=== PATIENT | male | born 1960 | race Caucasian/White ===

== ENCOUNTER 2023-02-07 18:27 | Emergency (ER) | payer OTHER ==
[2023-02-07 18:44] VITALS: BP 110/71; PULSE 95; RESP 18; TEMP 98; BMI 25.8
[2023-02-08] MEDS ORDERED: oxyCODONE HCL 5 MG TABLET PO ONE (00:44)
[2023-02-08] MEDS ORDERED: oxyCODONE HCL 5 MG TABLET ONE (00:48)
== END 2023-02-08 01:12 | disposition home or self-care (01) ==
LOC: JER 18:27
DX: K94.03 Colostomy malfunction (principal)
CPT/HCPCS: 99283-25

== ENCOUNTER 2023-03-07 05:32 | Inpatient (IN) | payer OTHER ==
[2023-03-07 08:36] LABS: VENOUS BASE EXCESS 5.7 mmol/L (-2-2); VENOUS O2 SATURATION 92.2 % (70-80); VENOUS PCO2 54.9 mmHg (38-52); VENOUS PH 7.383 (7.310-7.410)
[2023-03-07 08:37] LABS: BASO % 1.9 % (0-2.0); EOS % 2.6 % (0-4.5); HEMATOCRIT 34.5 % (35.4-49); HEMOGLOBIN 10.2 GM/dL (11.7-16.9); LYMPH % 18.5 % (8-40); MCH 20.8 pg (25.7-33.7); MCHC 29.4 g/dl (32.0-35.9); MEAN CELL VOLUME 70.8 fl (80-96); MEAN PLT VOLUME 7.6 fl (7.5-11.1); MONO % 10.6 % (3.8-10.2); NEUT % 66.4 % (42.8-82.8); PLATELET COUNT 304 10^3/uL (134-434); RBC 4.88 M/mm3 (4.00-5.60); RDW 19.2 % (11.9-15.9); WHITE BLOOD COUNT 7.5 K/mm3 (4.0-10.0)
[2023-03-07 08:47] LABS: INR 1.02 (0.83-1.09); PROTHROMBIN TIME (PATIENT) 11.8 SEC (9.7-13.0)
[2023-03-07 08:50] LABS: ACTIVATED PTT 30.9 SECONDS (25.2-36.5)
[2023-03-07 08:59] LABS: POTASSIUM 4.1 mmol/L (3.5-5.1)
[2023-03-07 09:01] LABS: ALBUMIN 3.1 g/dl (3.4-5.0); BLOOD UREA NITROGEN 26.8 mg/dL (7-18); CALCIUM 9.4 mg/dL (8.5-10.1)
[2023-03-07 09:05] LABS: CREATININE 0.6 mg/dL (0.55-1.3)
[2023-03-07 09:06] LABS: BILIRUBIN,TOTAL 0.2 mg/dL (0.2-1); TOT PROT 7.1 g/dl (6.4-8.2)
[2023-03-07] MEDS ORDERED: VANCOMYCIN 1,000 MG in DEXTROSE 5%-WATER - 250 ML IVPB ONE (09:26)
[2023-03-07] MEDS ORDERED: PIPERACILLIN/TAZOB 3.375 GM 3.375 GM in DEXTROSE 5%-WATER - 50 ML IVPB ONE (09:26)
[2023-03-07 09:36] LABS: ANISOCYTOSIS 2+; MACROCYTOSIS 0
[2023-03-07] MEDS ORDERED: PIPERACILLIN/TAZOB 3.375 GM 3.375 GM/50 ML BAG IVPB ONE (09:37)
[2023-03-07] MEDS ORDERED: VANCOMYCIN 1 GRAM (PRE-DOCKED) 1,000 MG/250 ML BAG IVPB ONE (09:37)
[2023-03-07] MEDS: NYSTATIN 100,000 UNIT/GM TOPICAL CREAM 15 GM TUBE TP SCH ×2 (10:50→23:36)
[2023-03-07] MEDS ORDERED: SODIUM CHLORIDE 1,000 ML IV SCH (18:30)
[2023-03-07 21:10] VITALS: BMI 24.7
[2023-03-07] MEDS: ATORVASTATIN CA 20 MG TABLET (FP) PO SCH (22:17)
[2023-03-07] MEDS: QUEtiapine FUMARATE 300 MG TABLET PO SCH (22:18)
[2023-03-07] MEDS ORDERED: ACETAMINOPHEN 1000 MG/100 ML BAG IVPB PRN (23:02)
[2023-03-07] MEDS ORDERED: oxyCODONE HCL 5 MG TABLET PO ONE (23:02)
[2023-03-08] MEDS ORDERED: PIPERACILLIN/TAZOB 3.375 GM 3.375 GM in DEXTROSE 5%-WATER - 50 ML IVPB SCH (10:00)
[2023-03-08] MEDS ORDERED: ESCITALOPRAM OXALATE 20 MG TABLET PO SCH ×2 (10:00)
[2023-03-08] MEDS ORDERED: FLUoxetine HCL 10 MG TABLET PO SCH (10:00)
[2023-03-08] MEDS: QUEtiapine FUMARATE 300 MG TABLET PO SCH (10:35)
[2023-03-08] MEDS: TAMSULOSIN HCL 0.4 MG CAP PO SCH (10:35)
[2023-03-08] MEDS: DOCUSATE SODIUM 100 MG CAPSULE (FP) PO SCH (10:35)
[2023-03-08] MEDS: metoPROLOL SUCCINATE 25 MG TAB.SR.24H (FP) PO SCH (10:36)
[2023-03-08] MEDS: VANCOMYCIN/WATER FOR INJ (PEG) 1,000 MG/200 ML BAG IVPB SCH ×2 (10:53→21:35)
[2023-03-08] MEDS: NYSTATIN 100,000 UNIT/GM TOPICAL CREAM 15 GM TUBE TP SCH ×2 (12:22→21:35)
[2023-03-08] MEDS: CEFTRIAXONE 1 GM in DEXTROSE 5%-WATER - 50 ML IVPB SCH (18:12)
[2023-03-08] MEDS: ATORVASTATIN CA 20 MG TABLET (FP) PO SCH (21:35)
[2023-03-09] MEDS ORDERED: QUEtiapine FUMARATE 100 MG TABLET (FP) ONE (10:11)
[2023-03-09] MEDS: TAMSULOSIN HCL 0.4 MG CAP PO SCH (10:30)
[2023-03-09] MEDS: NYSTATIN 100,000 UNIT/GM TOPICAL CREAM 15 GM TUBE TP SCH ×2 (10:31→22:24)
[2023-03-09] MEDS: QUEtiapine FUMARATE 300 MG TABLET PO SCH (10:31)
[2023-03-09] MEDS: DOCUSATE SODIUM 100 MG CAPSULE (FP) PO SCH (10:31)
[2023-03-09] MEDS: metoPROLOL SUCCINATE 25 MG TAB.SR.24H (FP) PO SCH (10:32)
[2023-03-09] MEDS: VANCOMYCIN/WATER FOR INJ (PEG) 1,000 MG/200 ML BAG IVPB SCH ×2 (10:32→22:23)
[2023-03-09 12:37] LABS: URINE APPEARANCE CLEAR; URINE BILIRUBIN NEGATIVE (NEGATIVE); URINE COLOR YELLOW; URINE GLUCOSE (UA) NEGATIVE (NEGATIVE); URINE KETONE NEGATIVE (NEGATIVE); URINE LEUK ESTERASE 2+ (NEGATIVE); URINE NITRITE NEGATIVE (NEGATIVE); URINE PROTEIN NEGATIVE (NEGATIVE); URINE UROBILINOGEN 0.2 mg/dL (0.2-1.0)
[2023-03-09 12:39] LABS: URINE BACTERIA 1+ /uL (0-1359); URINE RBC 0-3 /uL (0-23.9); URINE WBC 50-100 /uL (0-25.8)
[2023-03-09] MEDS: CEFTRIAXONE 1 GM in DEXTROSE 5%-WATER - 50 ML IVPB SCH (13:18)
[2023-03-09] MEDS: ATORVASTATIN CA 20 MG TABLET (FP) PO SCH (22:22)
[2023-03-09 23:17] VITALS: RESP 18
[2023-03-10] MEDS ORDERED: ACETAMINOPHEN 1000 MG/100 ML BAG IVPB ONE (01:01)
[2023-03-10] MEDS ORDERED: QUEtiapine FUMARATE 100 MG TABLET (FP) ONE (09:14)
[2023-03-10] MEDS: TAMSULOSIN HCL 0.4 MG CAP PO SCH (09:16)
[2023-03-10] MEDS: QUEtiapine FUMARATE 300 MG TABLET PO SCH (09:16)
[2023-03-10] MEDS: DOCUSATE SODIUM 100 MG CAPSULE (FP) PO SCH (09:16)
[2023-03-10] MEDS: metoPROLOL SUCCINATE 25 MG TAB.SR.24H (FP) PO SCH (09:16)
[2023-03-10] MEDS: CEFTRIAXONE 1 GM in DEXTROSE 5%-WATER - 50 ML IVPB SCH (09:16)
[2023-03-10] MEDS: NYSTATIN 100,000 UNIT/GM TOPICAL CREAM 15 GM TUBE TP SCH ×2 (09:17→21:58)
[2023-03-10 10:21] LABS: BASO % 1.7 % (0-2.0); EOS % 5.9 % (0-4.5); HEMATOCRIT 33.3 % (35.4-49); HEMOGLOBIN 9.7 GM/dL (11.7-16.9); LYMPH % 22.9 % (8-40); MCH 20.9 pg (25.7-33.7); MCHC 29.1 g/dl (32.0-35.9); MEAN CELL VOLUME 71.7 fl (80-96); MEAN PLT VOLUME 7.5 fl (7.5-11.1); MONO % 11.7 % (3.8-10.2); NEUT % 57.8 % (42.8-82.8); PLATELET COUNT 303 10^3/uL (134-434); RBC 4.65 M/mm3 (4.00-5.60); RDW 19.2 % (11.9-15.9); WHITE BLOOD COUNT 6.3 K/mm3 (4.0-10.0)
[2023-03-10] MEDS: VANCOMYCIN/WATER FOR INJ (PEG) 1,000 MG/200 ML BAG IVPB SCH ×2 (10:21→21:58)
[2023-03-10 10:34] LABS: POTASSIUM 4.3 mmol/L (3.5-5.1)
[2023-03-10 10:49] LABS: BLOOD UREA NITROGEN 16.2 mg/dL (7-18)
[2023-03-10 10:54] LABS: CALCIUM 8.7 mg/dL (8.5-10.1)
[2023-03-10 10:57] LABS: CREATININE 0.6 mg/dL (0.55-1.3)
[2023-03-10 12:19] LABS: ANISOCYTOSIS 1+; MACROCYTOSIS 1+; ROULEAU 1+
[2023-03-10] MEDS: ATORVASTATIN CA 20 MG TABLET (FP) PO SCH (21:58)
[2023-03-11] MEDS ORDERED: ACETAMINOPHEN 500 MG TABLET (FP) PO ONE (05:58)
[2023-03-11] MEDS ORDERED: QUEtiapine FUMARATE 100 MG TABLET (FP) ONE (09:15)
[2023-03-11] MEDS: DOCUSATE SODIUM 100 MG CAPSULE (FP) PO SCH (09:28)
[2023-03-11] MEDS: metoPROLOL SUCCINATE 25 MG TAB.SR.24H (FP) PO SCH (09:28)
[2023-03-11] MEDS: TAMSULOSIN HCL 0.4 MG CAP PO SCH (09:28)
[2023-03-11] MEDS: CEFTRIAXONE 1 GM in DEXTROSE 5%-WATER - 50 ML IVPB SCH (09:30)
[2023-03-11 09:47] VITALS: BP 114/63; PULSE 75; TEMP 98
[2023-03-11] MEDS: NYSTATIN 100,000 UNIT/GM TOPICAL CREAM 15 GM TUBE TP SCH (10:16)
[2023-03-11] MEDS: QUEtiapine FUMARATE 300 MG TABLET PO SCH (10:16)
== END 2023-03-11 14:38 | DRG 603 ==
LOC: JER 05:32 → JERBED 09:41 → J7W 18:28 → J6S 03-08 12:43 → OBSVTOIN 03-09 15:01
PROVIDERS: ADMIT Internal Medicine; ATTEND Internal Medicine
DX: L03.311 Cellulitis of abdominal wall (principal); L03.115 Cellulitis of right lower limb; L03.116 Cellulitis of left lower limb; G82.20 Paraplegia, unspecified; K94.09 Other complications of colostomy; I10 Essential (primary) hypertension; F32.A Depression, unspecified; E78.5 Hyperlipidemia, unspecified; R45.1 Restlessness and agitation; J44.9 Chronic obstructive pulmonary disease, unspecified; L30.4 Erythema intertrigo; F20.9 Schizophrenia, unspecified; Y83.8 Other surgical procedures as the cause of abnormal reaction of the patient, or of later complication, without mention of misadventure at the time of the procedure; Y82.9 Unspecified medical devices associated with adverse incidents
CPT/HCPCS: 0241U-QW; 36415; 71045-TC-FY; 74177-TC; 80048; 80053; 81003; 82803; 82977; 83605; 85025; 85610; 85730; 86850; 86900; 86901; 87040; 87086; 93005; 93010; 99285-25; G0378; G0480; Q9967

== ENCOUNTER 2023-05-03 08:17 | Emergency (ER) | payer OTHER ==
[2023-05-03] MEDS ORDERED: ACETAMINOPHEN 325 MG TABLET (FP) ONE (09:19)
[2023-05-03] MEDS: ACETAMINOPHEN 325 MG TABLET (FP) PO ONE (09:30)
[2023-05-03 10:54] VITALS: BMI 22.6
[2023-05-03 11:20] VITALS: BP 121/88; PULSE 66; RESP 17; TEMP 97.7
== END 2023-05-03 10:50 ==
LOC: JER 08:17
DX: R10.9 Unspecified abdominal pain (principal); M79.89 Other specified soft tissue disorders; K94.09 Other complications of colostomy; K94.19 Other complications of enterostomy
CPT/HCPCS: 99283-25

== ENCOUNTER 2023-05-23 05:21 | Emergency (ER) | payer OTHER ==
[2023-05-23 05:47] VITALS: BMI 26.6
[2023-05-23] MEDS: NYSTATIN 100,000 UNIT/GM TOPICAL CREAM 15 GM TUBE TP ONE (06:41)
[2023-05-23] MEDS: NYSTATIN POWDER 100,000 UNITS/GM - 15 GM TOPICAL POWDER TP ONE (06:54)
[2023-05-23] MEDS ORDERED: ACETAMINOPHEN INJECTION 100 ML IVPB ONE (06:55)
[2023-05-23 06:58] LABS: BASO % 1.4 % (0-2.0); EOS % 4.4 % (0-4.5); HEMATOCRIT 38.8 % (35.4-49); HEMOGLOBIN 11.1 GM/dL (11.7-16.9); LYMPH % 24.1 % (8-40); MCH 20.7 pg (25.7-33.7); MCHC 28.7 g/dl (32.0-35.9); MEAN CELL VOLUME 72.1 fl (80-96); MEAN PLT VOLUME 7.3 fl (7.5-11.1); MONO % 14.1 % (3.8-10.2); PLATELET COUNT 267 10^3/uL (134-434); RBC 5.38 M/mm3 (4.00-5.60); RDW 18.7 % (11.9-15.9); WHITE BLOOD COUNT 5.9 K/mm3 (4.0-10.0)
[2023-05-23] MEDS: ACETAMINOPHEN 1000 MG/100 ML BAG IVPB ONE (07:00)
[2023-05-23 07:21] LABS: INR 1.03 (0.83-1.09)
[2023-05-23 07:24] LABS: ACTIVATED PTT 32.8 SECONDS (25.2-36.5); POTASSIUM 4.2 mmol/L (3.5-5.1)
[2023-05-23 07:26] LABS: CALCIUM 9.1 mg/dL (8.5-10.1)
[2023-05-23 07:27] LABS: BLOOD UREA NITROGEN 24.6 mg/dL (7-18); MAGNESIUM 2.4 mg/dL (1.8-2.4)
[2023-05-23 07:33] LABS: BILIRUBIN,TOTAL 0.2 mg/dL (0.2-1); CREATININE 0.5 mg/dL (0.55-1.3); TOT PROT 7.1 g/dl (6.4-8.2)
[2023-05-23 09:21] LABS: ANISOCYTOSIS 0; MACROCYTOSIS 0
[2023-05-23 11:53] VITALS: BP 119/73; PULSE 70; RESP 22; TEMP 98.1
== END 2023-05-23 11:57 ==
LOC: JER 05:21
PROC: 3E033NZ Introduction of Analgesics, Hypnotics, Sedatives into Peripheral Vein, Percutaneous Approach (ICD-10-PCS; principal; 2023-05-23)
DX: B49 Unspecified mycosis (principal); Z93.3 Colostomy status
CPT/HCPCS: 0241U-QW; 36415; 71045-TC-FY; 80053; 83735; 84100; 85025; 85610; 85651; 85730; 86140; 99284-25; J0131

== ENCOUNTER 2023-07-24 08:25 | Observation (INO) | payer OTHER ==
[2023-07-24 08:47] VITALS: BMI 24.3
[2023-07-24 09:32] LABS: BASO % 1.7 % (0-2.0); EOS % 3.8 % (0-4.5); HEMOGLOBIN 11.5 GM/dL (11.7-16.9); INR 1.02 (0.83-1.09); MCH 22.2 pg (25.7-33.7); MCHC 30.2 g/dl (32.0-35.9); MEAN CELL VOLUME 73.4 fl (80-96); MEAN PLT VOLUME 7.3 fl (7.5-11.1); MONO % 12.1 % (3.8-10.2); NEUT % 63.4 % (42.8-82.8); PLATELET COUNT 217 10^3/uL (134-434); PROTHROMBIN TIME (PATIENT) 11.5 SEC (9.7-13.0); RBC 5.18 M/mm3 (4.00-5.60); RDW 20.1 % (11.9-15.9); WHITE BLOOD COUNT 7.6 K/mm3 (4.0-10.0)
[2023-07-24 09:35] LABS: ACTIVATED PTT 33.2 SECONDS (25.2-36.5)
[2023-07-24 09:43] LABS: POTASSIUM 4.4 mmol/L (3.5-5.1)
[2023-07-24] MEDS ORDERED: BACLOFEN 10 MG TABLET (FP) ONE (09:44)
[2023-07-24 09:48] LABS: BLOOD UREA NITROGEN 20.9 mg/dL (7-18)
[2023-07-24 09:50] LABS: ALBUMIN 2.9 g/dl (3.4-5.0); CALCIUM 8.6 mg/dL (8.5-10.1); CREATININE 0.7 mg/dL (0.55-1.3); MAGNESIUM 2.2 mg/dL (1.8-2.4)
[2023-07-24 09:51] LABS: BILIRUBIN,TOTAL 0.3 mg/dL (0.2-1); TOT PROT 6.8 g/dl (6.4-8.2)
[2023-07-24] MEDS: BACLOFEN 10 MG TABLET (FP) PO ONE (09:56)
[2023-07-24] MEDS ORDERED: ACETAMINOPHEN INJECTION 100 ML IVPB ONE (12:20)
[2023-07-24] MEDS: SODIUM CHLORIDE 0.9% 500 ML INFUS.BAG IV ONE (12:27)
[2023-07-24] MEDS: ACETAMINOPHEN 1000 MG/100 ML BAG IVPB ONE (12:27)
[2023-07-24] MEDS ORDERED: QUEtiapine FUMARATE 100 MG TABLET (FP) ONE (16:23)
[2023-07-24] MEDS: oxyCODONE HCL 5 MG TABLET PO PRN (16:28)
[2023-07-24] MEDS: QUEtiapine FUMARATE 300 MG TABLET PO SCH (17:46)
[2023-07-24] MEDS: ATORVASTATIN CA 40 MG TABLET (FP) PO SCH (21:01)
[2023-07-24] MEDS: ACETAMINOPHEN 325 MG TABLET (FP) PO PRN (21:04)
[2023-07-25] MEDS: TAMSULOSIN HCL 0.4 MG CAP PO SCH (08:33)
[2023-07-25] MEDS: CEFTRIAXONE 1 GM in DEXTROSE 5%-WATER - 50 ML IVPB ONE (08:33)
[2023-07-25] MEDS ORDERED: QUEtiapine FUMARATE 100 MG TABLET (FP) ONE (09:26)
[2023-07-25] MEDS: NYSTATIN/TRIAMCINOLONE TOPICAL OINTMENT 15 GM TUBE TP SCH (09:45)
[2023-07-25] MEDS: metoPROLOL SUCCINATE 25 MG TAB.SR.24H (FP) PO SCH (09:45)
[2023-07-25 10:18] LABS: HEMATOCRIT 41.8 % (35.4-49); HEMOGLOBIN 12.9 GM/dL (11.7-16.9); MCH 22.5 pg (25.7-33.7); MCHC 30.9 g/dl (32.0-35.9); MEAN PLT VOLUME 7.7 fl (7.5-11.1); PLATELET COUNT 195 10^3/uL (134-434); RBC 5.73 M/mm3 (4.00-5.60); RDW 20.1 % (11.9-15.9); WHITE BLOOD COUNT 7.1 K/mm3 (4.0-10.0)
[2023-07-25 10:40] LABS: POTASSIUM 3.9 mmol/L (3.5-5.1)
[2023-07-25 10:45] LABS: BLOOD UREA NITROGEN 16.4 mg/dL (7-18)
[2023-07-25 10:46] LABS: ALBUMIN 2.9 g/dl (3.4-5.0); CALCIUM 8.5 mg/dL (8.5-10.1)
[2023-07-25 10:48] LABS: CREATININE 0.6 mg/dL (0.55-1.3)
[2023-07-25 10:50] LABS: BILIRUBIN,TOTAL 0.4 mg/dL (0.2-1); TOT PROT 6.7 g/dl (6.4-8.2)
[2023-07-26] MEDS ORDERED: QUEtiapine FUMARATE 100 MG TABLET (FP) ONE (09:13)
[2023-07-26] MEDS: CEFTRIAXONE 1 GM in DEXTROSE 5%-WATER - 50 ML IVPB SCH (09:33)
[2023-07-26 21:16] VITALS: RESP 18
[2023-07-27 06:06] VITALS: TEMP 98.1
[2023-07-27 09:59] VITALS: BP 131/90; PULSE 84
== END 2023-07-27 11:36 ==
LOC: JER 08:25 → JERBED 09:17 → J4W 14:21
PROVIDERS: ADMIT Family Medicine; ATTEND Family Medicine
PROC: 3E033NZ Introduction of Analgesics, Hypnotics, Sedatives into Peripheral Vein, Percutaneous Approach (ICD-10-PCS; principal; 2023-07-24)
PROC: 3E03329 Introduction of Other Anti-infective into Peripheral Vein, Percutaneous Approach (ICD-10-PCS; 2023-07-24)
PROC: 3E0337Z Introduction of Electrolytic and Water Balance Substance into Peripheral Vein, Percutaneous Approach (ICD-10-PCS; 2023-07-24)
DX: J98.11 Atelectasis (principal); J44.9 Chronic obstructive pulmonary disease, unspecified; I10 Essential (primary) hypertension; E78.5 Hyperlipidemia, unspecified; M54.9 Dorsalgia, unspecified; R00.1 Bradycardia, unspecified; R09.02 Hypoxemia; Z87.891 Personal history of nicotine dependence
CPT/HCPCS: 36415; 71045-TC-FY; 71275-TC; 80053; 82550; 82553; 83690; 83735; 83880; 84484; 85025; 85027; 85379; 85610; 85730; 86850; 86900; 86901; 93005; 93010; 96365; 96366; 96375; 99285-25; G0378; J0131; J0475

== ENCOUNTER 2023-11-01 11:16 | Inpatient (IN) | payer OTHER ==
[2023-11-01 12:07] VITALS: BMI 24.5
[2023-11-01] MEDS ORDERED: ALBUTEROL SO4 0.083% IH SOL 2.5 MG/3 ML VIAL.NEB. NEB ONE (12:22)
[2023-11-01] MEDS: ALBUTEROL SO4 0.5 % INH SOLN 2.5 MG/0.5 ML VIAL.NEB. NEB ONE (13:02)
[2023-11-01 13:17] LABS: POTASSIUM 4.5 mmol/L (3.5-5.1)
[2023-11-01 13:19] LABS: CALCIUM 8.9 mg/dL (8.5-10.1)
[2023-11-01 13:20] LABS: ALBUMIN 3.3 g/dl (3.4-5.0); BLOOD UREA NITROGEN 16.9 mg/dL (7-18)
[2023-11-01 13:23] LABS: CREATININE 0.7 mg/dL (0.55-1.3)
[2023-11-01 13:24] LABS: BILIRUBIN,TOTAL 0.3 mg/dL (0.2-1); TOT PROT 6.6 g/dl (6.4-8.2)
[2023-11-01 13:32] LABS: BASO % 1.1 % (0-2.0); EOS % 2.9 % (0-4.5); HEMATOCRIT 42.4 % (35.4-49); HEMOGLOBIN 12.9 GM/dL (11.7-16.9); LYMPH % 18.5 % (8-40); MCH 24.1 pg (25.7-33.7); MCHC 30.5 g/dl (32.0-35.9); MEAN PLT VOLUME 8.2 fl (7.5-11.1); MONO % 12.6 % (3.8-10.2); NEUT % 64.9 % (42.8-82.8); PLATELET COUNT 172 10^3/uL (134-434); RBC 5.37 M/mm3 (4.00-5.60); RDW 18.2 % (11.9-15.9); WHITE BLOOD COUNT 7.2 K/mm3 (4.0-10.0)
[2023-11-02] MEDS ORDERED: ALBUTEROL SO4 2.5/IPRATROPIUM 0.5 INH SOL 3 ML VIAL.NEB. NEB PRN (01:55)
[2023-11-02] MEDS: MELATONIN 5 MG TABLETS PO ONE (06:08)
[2023-11-02 08:56] VITALS: RESP 20
[2023-11-02] MEDS ORDERED: TAMSULOSIN HCL 0.4 MG CAP ONE (09:10)
[2023-11-02] MEDS ORDERED: ALBUTEROL SO4 2.5/IPRATROPIUM 0.5 INH SOL 3 ML VIAL.NEB. NEB ONE ×3 (09:10→20:05)
[2023-11-02] MEDS: ALBUTEROL SO4 2.5/IPRATROPIUM 0.5 INH SOL 3 ML VIAL.NEB. NEB SCH (09:15)
[2023-11-02] MEDS: TAMSULOSIN HCL 0.4 MG CAP PO SCH (09:15)
[2023-11-02] MEDS ORDERED: FLUTICASONE/UMECLIDIN/VILANTER(200-62.5-25 TRELEGY ELLIPTA) INAHLER IH SCH (10:00)
[2023-11-02] MEDS ORDERED: metoPROLOL SUCCINATE 25 MG TAB.SR.24H (FP) PO ONE (10:09)
[2023-11-02] MEDS ORDERED: ENOXAPARIN NA (PORCINE) 40 MG/0.4 ML DISP.SYRIN SQ ONE (10:09)
[2023-11-02] MEDS: metoPROLOL SUCCINATE 25 MG TAB.SR.24H (FP) PO SCH (10:40)
[2023-11-02] MEDS: ENOXAPARIN NA (PORCINE) 40 MG/0.4 ML DISP.SYRIN SQ SCH (10:40)
[2023-11-02] MEDS ORDERED: ACETAMINOPHEN 325 MG TABLET (FP) ONE (14:15)
[2023-11-02] MEDS: ACETAMINOPHEN 325 MG TABLET (FP) PO PRN (14:20)
[2023-11-02] MEDS ORDERED: SODIUM CHLORIDE NASAL SPRAY 44 ML BOTTLE NS PRN (16:17)
[2023-11-02 22:11] VITALS: BP 128/86; PULSE 65; TEMP 98.1
[2023-11-02] MEDS ORDERED: QUEtiapine FUMARATE 100 MG TABLET (FP) ONE (23:01)
[2023-11-02] MEDS ORDERED: ATORVASTATIN CA 20 MG TABLET (FP) ONE (23:01)
[2023-11-02] MEDS: QUEtiapine FUMARATE 100 MG TABLET (FP) PO SCH (23:05)
[2023-11-02] MEDS: ATORVASTATIN CA 20 MG TABLET (FP) PO SCH (23:05)
[2023-11-03] MEDS ORDERED: QUEtiapine FUMARATE 300 MG TABLET PO SCH (06:31)
== END 2023-11-03 01:42 | DRG 189 ==
LOC: JER 11:16 → JERBED 19:56
PROVIDERS: ADMIT Internal Medicine; ATTEND Nurse Practitioner
DX: J96.21 Acute and chronic respiratory failure with hypoxia (principal); J44.1 Chronic obstructive pulmonary disease with (acute) exacerbation; J98.11 Atelectasis; I69.359 Hemiplegia and hemiparesis following cerebral infarction affecting unspecified side; I25.10 Atherosclerotic heart disease of native coronary artery without angina pectoris; I10 Essential (primary) hypertension; E78.5 Hyperlipidemia, unspecified; J45.909 Unspecified asthma, uncomplicated; N40.0 Benign prostatic hyperplasia without lower urinary tract symptoms; E87.6 Hypokalemia; Z95.5 Presence of coronary angioplasty implant and graft
CPT/HCPCS: 0241U-QW; 36415; 71045-TC-FY; 71275-TC; 80053; 83880; 84484; 85025; 93005; 93010; 99285-25; Q9967

== ENCOUNTER 2023-11-13 10:07 | Emergency (ER) | payer OTHER ==
[2023-11-13 10:49] VITALS: BP 123/80; PULSE 73; RESP 16; TEMP 98.4; BMI 54.1
[2023-11-13] MEDS ORDERED: oxyCODONE HCL 5 MG TABLET ONE (11:07)
[2023-11-13] MEDS: oxyCODONE HCL 5 MG TABLET PO ONE (11:09)
== END 2023-11-13 13:21 ==
LOC: JER 10:07
DX: K94.03 Colostomy malfunction (principal)
CPT/HCPCS: 99283-25

== ENCOUNTER 2023-12-14 08:27 | Emergency (ER) | payer OTHER ==
[2023-12-14 09:24] VITALS: RESP 16; BMI 24.3
[2023-12-14] MEDS ORDERED: ACETAMINOPHEN INJECTION 100 ML ONE (09:24)
[2023-12-14] MEDS ORDERED: FENTANYL CITRATE/PF 50 MCG/ML VIAL ONE (09:25)
[2023-12-14] MEDS: ACETAMINOPHEN 1000 MG/100 ML BAG IVPB ONE (10:02)
[2023-12-14 10:06] LABS: BASO % 0.9 % (0-2.0); EOS % 1.2 % (0-4.5); HEMATOCRIT 43.8 % (35.4-49); HEMOGLOBIN 13.2 GM/dL (11.7-16.9); LYMPH % 13.1 % (8-40); MCH 23.9 pg (25.7-33.7); MCHC 30.2 g/dl (32.0-35.9); MEAN CELL VOLUME 79.1 fl (80-96); MEAN PLT VOLUME 7.5 fl (7.5-11.1); MONO % 6.8 % (3.8-10.2); PLATELET COUNT 164 10^3/uL (134-434); RBC 5.54 M/mm3 (4.00-5.60); RDW 17.6 % (11.9-15.9); WHITE BLOOD COUNT 6.6 K/mm3 (4.0-10.0)
[2023-12-14 10:12] LABS: INR 0.96 (0.83-1.09); PROTHROMBIN TIME (PATIENT) 10.9 SEC (9.7-13.0)
[2023-12-14 10:15] LABS: ACTIVATED PTT 32.7 SECONDS (25.2-36.5)
[2023-12-14 10:24] LABS: POTASSIUM 4.6 mmol/L (3.5-5.1)
[2023-12-14 10:27] LABS: CALCIUM 8.9 mg/dL (8.5-10.1)
[2023-12-14 10:28] LABS: ALBUMIN 3.3 g/dl (3.4-5.0)
[2023-12-14 10:31] LABS: CREATININE 0.6 mg/dL (0.55-1.3)
[2023-12-14 10:33] LABS: BILIRUBIN,TOTAL 0.4 mg/dL (0.2-1); TOT PROT 6.7 g/dl (6.4-8.2)
[2023-12-14 10:44] LABS: EPI CELLS 9 /uL (0-25.1); HYALINE CASTS 0 /uL (0-3.1); PH,URINE 5.5 (5.0-8.0); URINE APPEARANCE CLOUDY; URINE BACTERIA 219 /uL (0-1359); URINE BILIRUBIN NEGATIVE (NEGATIVE); URINE COLOR YELLOW; URINE GLUCOSE (UA) NEGATIVE (NEGATIVE); URINE KETONE NEGATIVE (NEGATIVE); URINE LEUK ESTERASE 2+ (NEGATIVE); URINE NITRITE NEGATIVE (NEGATIVE); URINE PROTEIN 2+ (NEGATIVE); URINE UROBILINOGEN 0.2 mg/dL (0.2-1.0); URINE WBC 1260 /uL (0-25.8)
[2023-12-14] MEDS ORDERED: CEFTRIAXONE 1 GM/50 ML BAG ONE (11:11)
[2023-12-14 11:17] LABS: URINE RBC 339.8 /uL (0-23.9); YEAST NEGATIVE (NEGATIVE)
[2023-12-14] MEDS: CEFTRIAXONE 1 GM in DEXTROSE 5%-WATER - 100 ML IVPB ONE (11:20)
[2023-12-14 12:59] VITALS: BP 137/67; PULSE 69; TEMP 98
== END 2023-12-14 16:14 | disposition home or self-care (01) ==
LOC: JER 08:27
PROC: 3E033NZ Introduction of Analgesics, Hypnotics, Sedatives into Peripheral Vein, Percutaneous Approach (ICD-10-PCS; principal; 2023-12-14)
PROC: 3E03329 Introduction of Other Anti-infective into Peripheral Vein, Percutaneous Approach (ICD-10-PCS; 2023-12-14)
PROC: 3E033NZ Introduction of Analgesics, Hypnotics, Sedatives into Peripheral Vein, Percutaneous Approach (ICD-10-PCS; 2023-12-14)
DX: N39.0 Urinary tract infection, site not specified (principal); R10.84 Generalized abdominal pain
CPT/HCPCS: 36415; 74176-TC; 80053; 81003; 83605; 84484; 85025; 85610; 85730; 86850; 86900; 86901; 87086; 93005; 93010; 99285-25; J0131